=== PATIENT | male | born 1960 | race Caucasian/White ===

== ENCOUNTER → 2020-05-11 10:04 | Outpatient (CLI) | payer OTHER, SELFPAY ==
[2020-05-12 01:21] LABS: COVID19 Sendout Not Detected (Not Detect)
== END ==
PROVIDERS: Visit Provider Physician Assistant
DX: Z01.812 Encounter for preprocedural laboratory examination (principal)
CPT/HCPCS: 87635

== ENCOUNTER 2020-05-13 09:02 | Day surgery (SDC) | payer OTHER, SELFPAY ==
[2020-05-02 09:51] VITALS: BMI 34.4
[2020-05-13] VITALS (11 sets, daily range): BP systolic 150–199; BP diastolic 86–107; PULSE 83–103; RESP 12–18; TEMP 36.8–37.5; O2SAT 92–99; BMI 36.3
--- NOTE | 2020-05-13 | DI.RAD.S_ITS ---
PROCEDURE: XR CERVICAL SPINE 2V OR 3V INDICATIONS: C3-4 ACDF TECHNIQUE: 2 view(s) of the cervical spine were acquired. COMPARISON: [facility] JERILYN Wiggins, XR CERVICAL SPINE 2 OR 3 VIEWS, 12/26/2019, 9:15. FINDINGS: Spot fluoroscopic intraoperative images demonstrating interbody cage graft and anterior retaining screws at the C3-C4 level. There is also ACDF at C4-C6. Dictated by: Alex Jain M.D. on 05/13/2020 at 15:53 Approved by: Alex Jain M.D. on 05/13/2020 at 15:54
[2020-05-13] MEDS: ACETAMINOPHEN 325 MG TABLET 975 MG PO (09:23)
[2020-05-13] MEDS: GABAPENTIN 300 MG CAPSULE PO (09:25)
[2020-05-13] MEDS: LACTATED RINGERS 1,000 ML 42 ML IV ×2 (09:25→14:57)
[2020-05-13] MEDS: METHADONE 5 MG TABLET PO (10:06)
--- NOTE | 2020-05-13 11:13 | PM.PREOP ---
Pre-operative Note COVID-19 COVID-19 status: Negative Result date/Date tested (Pos, Neg/Pending): 05/11/20 Interval Note History & Physical reviewed/Exam performed by Physician: Yes Changes to H&P: No
[2020-05-13] MEDS: CLINDAMYCIN 900 MG/50 ML PIGGYBACK 50 MG IV (11:51)
--- NOTE | 2020-05-13 12:38 | SUR.OPER ---
Supine, head on gel donut. Arms padded with gel pads, tucked at sides, towel roll under shoulders. Safety belt at thigh. Legs uncrossed.
--- NOTE | 2020-05-13 13:49 | PM.OP.1 ---
Operative Date/Time/Diagnoses Date of procedure: 05/13/20 Time of procedure: 12:19 Pre-op diagnosis: 1. C3-4 spinal stenosis 2. C3-4 spondylosis with radiculopathy Post-op diagnosis: same Procedure & Clinicians Procedure: 1. C3-4 anterior cervical diskectomy and fusion 2. C3-4 anterior interbody cage placement 3. C3-4 anterior instrumentation with plate and screw placement in C3 and C4 vertebrae 4. Utilization of microsurgical technique and operating microscope Same procedure as scheduled: Yes Indications: Patient has been having chronic neck pain and worsening cervical radiculopathy. Patient failed multiple conservative management with worsening pain weakness and numbness in her upper extremity. Patient has been having difficulty performing activity of daily living. After discussing risks benefits of treatment options, patient elected proceed with surgery. Surgeon: Venice Marion Vice President Process: Viktoriya Srinivasan Click Yes if Unassisted: No Operative Notes Closure Type: primary Specimen(s): none sent Prosthetic devices, grafts, tissues, transplants, or devices: Globus cervical interbody cage and plate Estimated Blood Loss (mL): 10 Blood products transfused: none Procedure in detail: Patient was seen in the preoperative area. Risks and benefits of the surgery was discussed with the patient. Informed consent was obtained from the patient and placed in the chart. Surgical site was marked. Patient was taken to the operative room. General anesthesia was administered. Prophylactic antibiotic was given to the patient less than 30 min before the incision was made. Patient was placed into a supine position on a radiolucent table. Patient's shoulders were taped down to allow proper C-arm imaging. Anterior cervical area was prepped and draped in a sterile fashion. Time-out was performed at this time. Using lateral C-arm imaging, the level between C3 and C4 was identified and marked on patient's neck. A oblique incision from midline towards medial border of sternocleidomastoid muscle was made. The platysma muscle was incised in line with skin incision. Metzenbaum scissor was used to develop the plane between the medial border of sternocleidomastoid and the strap muscles medially. The carotid sheath and its contents were identified and protected behind the hand-held retractor during the entire case. The plane between the carotid sheath and strap muscles was developed with Metzenbaum scissors. Dissection was made down to the level of the anterior cervical fascia. Longus colli muscle was incised on the anterior aspect of vertebral bodies bilaterally from C3-C4. Spinal needle was placed into the C3-4 disc space and confirmed with lateral C-arm imaging. Using microsurgical technique and operative microscope, anterior cervical diskectomy was performed at C3-4 level. This was done by removing the disc material, removing the anterior and posterior osteophytes posterior longitudinal ligaments along with performing bilateral foraminotomies at the C3-4 levels. Patient was found to have severe foraminal stenosis and central stenosis. Patient's stenosis was fully decompressed after decompression was completed. After the diskectomy was completed, an anterior interbody cage was obtained. The [employer] cage was packed with DBM bone grafting material. One cage each along with the bone grafting material was then inserted into the interbody space at C3-4 along with an anterior cervical plate. The cervical plate was stabilized to the C3-4 vertebrae using 2 screws. After confirming placement of the hardware with AP and lateral C-arm imaging, the screws were locked into the plate using the locking mechanism and torque limiting screwdriver. After the hardware was placed and confirmed with AP and lateral C-arm imaging, the wound was irrigated with sterile normal saline. The platysma muscle and the subcutaneous tissue was closed with 2-0 Vicryl. The skin was closed with 4-0 Monocryl and Steri-Strips. Patient tolerated the procedure well. Patient was transferred recovery room in stable condition. There were no complications. Complications: none Post-operative Condition: stable Disposition: same day surgery Plan for aftercare: Discharge to home
[2020-05-13] MEDS: fentaNYL 100 MCG/2 ML INJ IV ×5 (13:58→14:45)
[2020-05-13] MEDS: MIDAZOLAM 2 MG/2 ML VIAL IV (14:09)
[2020-05-13] MEDS: OXYCODONE IR 5 MG TABLET PO ×2 (14:26→14:52)
== END 2020-05-13 15:41 | disposition home or self-care (01) ==
PROVIDERS: Referring Provider Orthopaedic Surgery Orthopaedic Surgery of the Spine; Visit Provider Orthopaedic Surgery Orthopaedic Surgery of the Spine
PROC: (CPT 22551; principal; 2020-05-13 10:45)
DX: M48.02 Spinal stenosis, cervical region (principal); M47.22 Other spondylosis with radiculopathy, cervical region; F41.9 Anxiety disorder, unspecified; Z98.1 Arthrodesis status; E11.9 Type 2 diabetes mellitus without complications; G25.81 Restless legs syndrome; Z79.84 Long term (current) use of oral hypoglycemic drugs
CPT/HCPCS: 22551; 22853; 72040; 76000; C1776; J0330; J2250; J2704; J3010